=== PATIENT | male | born 1985 | race Caucasian/White ===

== ENCOUNTER 2023-05-16 14:50 | Emergency (ER) | payer OTHER ==
[~2023-05-16] VITALS: Ht 180.3 cm; Wt 99.1 kg
[~2023-05-16 14:50] MED LIST: ZOFR4TAB14 PO
[2023-05-16] MEDS: predniSONE 20 MG TAB PO ONE (19:29)
[2023-05-16] MEDS: methocarbamoL 500 MG TAB PO ONE (20:05)
[2023-05-16 20:20] VITALS: BP 138/85; TEMP 98.4; O2SAT 100
[2023-05-16] MEDS ORDERED: PRED20TA PO (20:28)
[2023-05-16] MEDS ORDERED: METH-1164 PO (20:28)
[2023-05-16] MEDS ORDERED: IBUP-1022 PO (20:28)
== END 2023-05-16 20:38 | disposition home or self-care (01) ==
LOC: M ED 15:44
DX: M54.50 Low back pain, unspecified (principal); N52.9 Male erectile dysfunction, unspecified; F10.10 Alcohol abuse, uncomplicated; Z79.52 Long term (current) use of systemic steroids; Z79.83 Long term (current) use of bisphosphonates; Z79.899 Other long term (current) drug therapy
CPT/HCPCS: 72110; 99284; J7512